=== PATIENT | female | born 1950 | race Caucasian/White ===

== ENCOUNTER 2023-03-09 06:49 | Outpatient (CLI) | payer MEDICARE, SELFPAY | END 2023-03-09 06:50 | disposition home or self-care (01) | LOC: INJ CL 06:50 | PROVIDERS: PCP Family Medicine; Visit Provider Family Medicine | DX: M54.16 Radiculopathy, lumbar region (principal); M51.36 Other intervertebral disc degeneration, lumbar region | CPT/HCPCS: 62323; J0702 ==

== ENCOUNTER 2023-09-10 12:53 | Outpatient (CLI) | payer MEDICARE, SELFPAY | END 2023-09-10 12:54 | disposition home or self-care (01) | PROVIDERS: PCP Family Medicine; Visit Provider Family Medicine | DX: M54.16 Radiculopathy, lumbar region (principal); M51.36 Other intervertebral disc degeneration, lumbar region | CPT/HCPCS: 62323; J0702; Q9966 ==

== ENCOUNTER 2023-11-16 07:26 | Outpatient (CLI) | payer MEDICARE, SELFPAY | END 2023-11-16 07:27 | disposition home or self-care (01) | LOC: INJ CL 07:26 | PROVIDERS: PCP Family Medicine; Visit Provider Family Medicine | DX: M51.36 Other intervertebral disc degeneration, lumbar region (principal) | CPT/HCPCS: 62323; J0702; J1100; Q9966 ==

== ENCOUNTER 2024-01-07 06:52 | Outpatient (CLI) | payer MEDICARE, SELFPAY | END 2024-01-07 06:53 | disposition home or self-care (01) | LOC: INJ CL 06:52 | PROVIDERS: PCP Family Medicine; Visit Provider Family Medicine | DX: M47.816 Spondylosis without myelopathy or radiculopathy, lumbar region (principal) | CPT/HCPCS: 64493; J0702 ==

== ENCOUNTER 2024-01-13 13:45 | Outpatient (RCR) | payer MEDICARE, SELFPAY | END 2024-05-12 23:59 | disposition home or self-care (01) | PROVIDERS: PCP Family Medicine; Visit Provider Family Medicine | DX: M43.16 Spondylolisthesis, lumbar region (principal); M48.062 Spinal stenosis, lumbar region with neurogenic claudication; M54.16 Radiculopathy, lumbar region; M47.816 Spondylosis without myelopathy or radiculopathy, lumbar region; Z51.89 Encounter for other specified aftercare | CPT/HCPCS: 97110; 97162 ==

== ENCOUNTER 2024-03-04 07:14 | Emergency (ER) | payer MEDICARE, SELFPAY ==
[2024-03-04 07:22] VITALS: BP 145/87; PULSE 80; RESP 16; TEMP 36.8; O2SAT 97; BMI 27.5
--- NOTE | 2024-03-04 08:01 | ED.GENADULT ---
HPI - General Adult General Chief complaint: Jaw Injury/Pain Stated complaint: right jaw swollen/painful Time Seen by Provider: 03/04/24 07:42 Source: patient Mode of arrival: ambulatory Limitations: no limitations History of Present Illness HPI narrative: 73-year-old female presents to the emergency department for evaluation of right-sided facial swelling. Has noticed left upper molar dental pain for the past day and a half, mild. Tried to get into the dentist yesterday but no offices had any providers in on Wednesday. She has had no fever, no difficulty swallowing or breathing. Last night she started having increased pain in the right cheek and now notes swelling along the jaw line this morning. No trauma or injury. She is not immunocompromised. She is allergic to penicillins and sulfas. She has also been having dental work done in the right lower jaw area due to bone loss. She has been working with a retirement sales consultant for this. The most recent updated procedure was performed about 3 weeks ago. She was not symptomatic at that time. No anticoagulants. No other areas of injury or swelling. No sinus pressure. No headache. Past medical history most notable for the antibiotic allergies she also has hyperlipidemia, GERD, type 2 diabetes. Medications reviewed listed as accurate per patient report. ROS is notable for the HEENT symptoms as above. Otherwise denies times 12 systems today. Related Data Home Medications ?Medication ?Instructions ?Recorded ?Confirmed atorvastatin 40 mg tablet 40 mg PO DAILY 05/02/23 05/02/23 citalopram 10 mg tablet 10 mg PO DAILY 05/02/23 03/04/24 esomeprazole magnesium 20 mg 20 mg PO DAILY 05/02/23 05/02/23 capsule,delayed release gabapentin 300 mg capsule 300 mg PO DAILY 05/02/23 03/04/24 metformin 500 mg tablet 500 mg PO BID 05/02/23 03/04/24 Previous Rx's ?Medication ?Instructions ?Recorded clindamycin HCl 300 mg capsule 300 mg PO TID #30 caps 03/04/24 Allergies Allergy/AdvReac Type Severity Reaction Status Date / Time Iodinated Contrast Media Allergy Intermediate Hives Verified 03/04/24 07:21 amoxicillin Allergy Verified 03/04/24 07:21 Penicillins Allergy Verified 03/04/24 07:21 shellfish derived Allergy Verified 03/04/24 07:21 Sulfa (Sulfonamide AdvReac Verified 03/04/24 07:21 Antibiotics) Exam Const: Vital Signs, click to edit/add: Vital Signs - 24 hr 03/04/24 07:22 Temperature 98.2 F Pulse Rate [Pulse Oximeter] 80 Respiratory Rate 16 Blood Pressure [Ri ght Upper Arm] 145/87 H Pulse Oximetry 97 Oxygen Delivery Me thod Room Air Documenting provider has reviewed patient's vital signs: yes Common normals: no apparent distress and alert General appearance: cooperative, comfortable and well kempt HENMT: Common normals: normocephalic, TM's normal bilaterally and moist oral mucous membranes Head and scalp: normocephalic Tympanic membrane: TM's normal bilaterally Other: Opens and closes the jaw normally. No signs of occlusion. Right lower jaws consistent with recent dental implant as patient describes. This does not have any redness or swelling or fluctuant area. Now the right upper tooth line does show mild redness along the right upper molar area without drainage or deformity. Tender to palpation but no drainage noted. Honey on her cheek though there is associated swelling and mild redness. There is bruising and swelling in the mandibular line on the right side. This really is just gravity dependent and is not warm, fluctuant or associated with any mass. The left side tooth line and jaw are normal. The neck has no significant swelling. There is a very mild anterior cervical and submandibular lymphadenopathy but only on the right side. No meningeal signs, moves normally. Eye: Common normals: conjunctivae normal General eye: normal appearance of both eyes Conjunctiva: conjunctiva(e) normal Neck & C-Spine: Common normals: full ROM General: normal visual inspection Resp: Common normals: normal respiratory effort, no use of accessory muscles and clear to auscultation bilaterally Effort & inspection: able to speak in complete sentences Auscultation: clear to auscultation bilaterally Cardio: Common normals: regular rate, regular rhythm, S1 normal heart sound, S2 normal heart sound and no murmurs Rate: regular rate Rhythm: regular rhythm Heart sounds: S1 normal and S2 normal Neuro: Sensorium/orientation: alert Motor exam: no movement abnormalities noted Psych: Appearance: well kempt Attitude: engaged Insight: insight good Judgement: judgment good Skin: Common normals: no rashes or lesions noted General skin exam: no rashes or lesions noted Course Course ED Course: 73-year-old female with facial swelling secondary to what appears to be a dental infection. Patient allergic to amoxicillin and sulfas. Recommend treatment clindamycin 300 t.i.d. for the next 7 days. Counseled that she will need definitive care in this is only temporary treatment. She will call the dentist Wednesday morning to secure an appointment. 1st dose of clindamycin given here in the ED. Okay to use Tylenol and ibuprofen as needed. There are no signs of airway swelling or spread at this time. Counseled patient that if she experiences neck swelling, difficulty swallowing, difficulty breathing she should come back right away. We want to do blood work CT and potentially prepare to manage in airway. She verbalized understanding and agreement. She will cotton picker the antibiotics and continue on these and make contact with her dentist as soon as possible. Written instructions provided. Vital Signs Vital signs: Initial Vital Signs Temperature 98.2 F 03/04/24 07:22 Temperature Source Temporal Artery Scan 03/04/24 07:22 Pulse Rate 80 03/04/24 07:22 Pulse Rhythm Regular 03/04/24 07:22 Respiratory Rate 16 03/04/24 07:22 Blood Pressure 145/87 H 03/04/24 07:22 Blood Pressure Mean 106 H 03/04/24 07:22 Blood Pressure Position Sitting 03/04/24 07:22 Pulse Oximetry 97 03/04/24 07:22 Oxygen Delivery Method Room Air 03/04/24 07:22 Vital Signs Temperature 98.2 F 03/04/24 07:22 Pulse Rate 80 03/04/24 07:22 Respiratory Rate 16 03/04/24 07:22 Blood Pressure 145/87 H 03/04/24 07:22 Pulse Oximetry 97 03/04/24 07:22 Oxygen Delivery Method Room Air 03/04/24 07:22 Temperature 98.2 F 03/04/24 07:22 Pulse Rate 80 03/04/24 07:22 Respiratory Rate 16 03/04/24 07:22 Blood Pressure 145/87 H 03/04/24 07:22 Pulse Oximetry 97 03/04/24 07:22 Oxygen Delivery Method Room Air 03/04/24 07:22 Discharge Plan Discharge Clinical Impression: Dental infection, Cellulitis of face Instructions: Dental Abscess (ED) Additional Instructions: As we discussed, I think the swelling in your jaw is from a dental infection. I agree with you that it seems to be coming from that left upper molar area. There does not seem to be an abscess that I can drain from the outside. This really does need to see a dentist as soon as possible. I can give some temporary treatment to help slow the progression of infection but ultimately it will need to be seen by someone who specializes in this. I will start you on clindamycin. We will give you a 1st dose here in the emergency department and then you will continue on 300 mg 3 times daily for at least the next week. The dentist may recommend a full 10 days depending on how soon they can get you in for treatment. It is okay to use Tylenol and/or ibuprofen for discomfort. Cold compresses may be helpful. The area of maximum swelling is just mainly because that is where gravity will settle the fluid and is not necessarily indicative of the area of infection. I would recommend that you come back to the emergency department if there is high fever, difficulty swallowing, difficulty breathing or other sign of complication. Activity Level: No Restrictions Discharge Diet: Regular Prescriptions: New clindamycin HCl 300 mg capsule 300 mg PO TID Qty: 30 0RF No Action atorvastatin 40 mg tablet 40 mg PO DAILY gabapentin 300 mg capsule 300 mg PO DAILY metformin 500 mg tablet 500 mg PO BID citalopram 10 mg tablet 10 mg PO DAILY esomeprazole magnesium 20 mg capsule,delayed release(DR/EC) 20 mg PO DAILY Follow Up/Referrals: Rehana Chiu MD [Primary Care Provider] - Stand Alone Forms: [employer] Info Instructions
[2024-03-04] MEDS: CLINDAMYCIN 150 MG CAPSULE 450 MG PO (08:30)
== END 2024-03-04 08:36 | disposition home or self-care (01) ==
LOC: ED 08:00
PROVIDERS: Emergency Provider Family Medicine; PCP Family Medicine
DX: K04.7 Periapical abscess without sinus (principal); L03.211 Cellulitis of face
CPT/HCPCS: 99283; A9270

== ENCOUNTER 2024-07-18 10:09 | Outpatient (CLI) | payer MEDICARE, SELFPAY | END 2024-07-18 10:10 | disposition home or self-care (01) | LOC: INJ CL 10:11 | PROVIDERS: PCP Family Medicine; Visit Provider Family Medicine | DX: M47.816 Spondylosis without myelopathy or radiculopathy, lumbar region (principal) | CPT/HCPCS: 64493; J0702; Q9966 ==

== ENCOUNTER 2024-12-15 06:31 | Outpatient (CLI) | payer MEDICARE, SELFPAY ==
--- NOTE | 2024-12-15 07:45 | P.ANES_ITS ---
Anesthesia Charges Start Date/Time Anesthesia Start Date: 12/15/24 Anesthesia Start Time: 07:18 Stop Date/Time Anesthesia Stop Date: 12/15/24 Anesthesia Stop Time: 07:41 Summary Extremes of Age - Over 70 or under 1: ELIGIBILITY ANALYST Coding CPT Codes CPT Codes: PELON LWR INTST NDSC NOS - 97466 ([id number]) P2 - PATIENT W/MILD SYST DISEASE, QX - ELIGIBILITY ANALYST SVC W/ MD MED DIRECTION, QK - WATCH AND CLOCK REPAIRER 2-4 CNCRNT ANES PROC Additional Codes: Summary - Extremes of Age - Over 70 or under 1: ELIGIBILITY ANALYST ([id number])
--- NOTE | 2024-12-15 07:45 | W.ANESCHARGE ---
Anesthesia Charges Start Date/Time Anesthesia Start Date: 12/15/24 Anesthesia Start Time: 07:18 Stop Date/Time Anesthesia Stop Date: 12/15/24 Anesthesia Stop Time: 07:41 Summary Extremes of Age - Over 70 or under 1: COAL PIPELINE OPERATOR Coding CPT Codes CPT Codes: PELON LWR INTST NDSC NOS - 67509 ([id number]) P2 - PATIENT W/MILD SYST DISEASE, QX - COAL PIPELINE OPERATOR SVC W/ MD MED DIRECTION, QK - SEARCH ENGINE OPTIMIZATION MANAGER 2-4 CNCRNT ANES PROC Additional Codes: Summary - Extremes of Age - Over 70 or under 1: COAL PIPELINE OPERATOR ([id number])
--- NOTE | 2024-12-15 10:22 | P.ANES_ITS ---
Anesthesia Charges Start Date/Time Anesthesia Start Date: 12/15/24 Anesthesia Start Time: 07:18 Stop Date/Time Anesthesia Stop Date: 12/15/24 Anesthesia Stop Time: 07:41 Summary Extremes of Age - Over 70 or under 1: MDA Coding CPT Codes CPT Codes: ANES LWR INTST NDSC NOS - 95204 ([id number]) P2 - PATIENT W/MILD SYST DISEASE, QK - HUMAN RESOURCES SPECIALIST 2-4 CNCRNT ANES PROC, QX - PRINT OPERATOR SVC W/ MD MED DIRECTION Additional Codes: Summary - Extremes of Age - Over 70 or under 1: MDA ([id number])
--- NOTE | 2024-12-15 10:22 | W.ANESCHARGE ---
Anesthesia Charges Start Date/Time Anesthesia Start Date: 12/15/24 Anesthesia Start Time: 07:18 Stop Date/Time Anesthesia Stop Date: 12/15/24 Anesthesia Stop Time: 07:41 Summary Extremes of Age - Over 70 or under 1: MDA Coding CPT Codes CPT Codes: ANES LWR INTST NDSC NOS - 97969 ([id number]) P2 - PATIENT W/MILD SYST DISEASE, QK - ACTIVITY ASSISTANT 2-4 CNCRNT ANES PROC, QX - DIE STORAGE CLERK SVC W/ MD MED DIRECTION Additional Codes: Summary - Extremes of Age - Over 70 or under 1: MDA ([id number])
== END 2024-12-15 06:32 | disposition home or self-care (01) ==
LOC: OP CLINIC 06:31
PROVIDERS: PCP Family Medicine; Visit Provider Internal Medicine Gastroenterology
DX: Z12.11 Encounter for screening for malignant neoplasm of colon (principal); Z86.0100 Personal history of colon polyps, unspecified; D12.8 Benign neoplasm of rectum
CPT/HCPCS: 00811; 45380; 88305; 99100; J2704